=== PATIENT | male | born 1995 | race Hispanic/Latino ===

== ENCOUNTER 2018-12-24 19:59 | Emergency (ER) | payer OTHER, SELFPAY ==
--- NOTE | 2018-12-24 21:03 | RAD ---
XR Chest Pa Lat STANDARD History: [Chest pain] Comparison: None. Findings: The lungs are clear. No pneumothorax or effusion. Cardiac silhouette and mediastinal contou rs are within normal limits. Impression: No acute intrathoracic abnormality.
--- NOTE | 2018-12-27 18:00 | EKG ---
Test Reason : Blood Pressure : / mmHG Vent. Rate : 060 BPM Atrial Rate : 060 BPM P-R Int : 146 ms QRS Dur : 080 ms QT Int : 368 ms P-R-T Axes : 065 069 053 degrees QTc Int : 368 ms Normal sinus rhythm Normal ECG Confirmed by JESSICA THOMASON DO ([id number]), editor managing director CRISTINA JOHNSON ([id number]) on 12/27/2018 6:00:10 PM Referred By: Confirmed By:JESSICA THOMASON DO
== END 2018-12-24 21:25 | disposition home or self-care (01) ==
LOC: ERS 19:59
DX: F41.9 Anxiety disorder, unspecified (principal); R07.89 Other chest pain; F17.210 Nicotine dependence, cigarettes, uncomplicated
CPT/HCPCS: 71046; 93005

== ENCOUNTER 2020-01-14 12:33 | Emergency (ER) | payer SELFPAY ==
[2020-01-14] MEDS ORDERED: Ibuprofen 200 MG TAB ONE (13:02)
[2020-01-14] MEDS ORDERED: Acetaminophen 500 MG TAB ONE (13:02)
--- NOTE | 2020-01-14 15:22 | RAD ---
PORTABLE CHEST ONE VIEW: 01/14/20 at 1:09 p.m. HISTORY: Chest pain. COMPARISON: 12/24/18 The heart size is normal. The lungs are expanded and clear. The bony thorax is normal. IMPRESSION: Normal exam. POS: [facility]
--- NOTE | 2020-01-15 14:28 | EKG ---
Test Reason : Blood Pressure : / mmHG Vent. Rate : 086 BPM Atrial Rate : 086 BPM P-R Int : 146 ms QRS Dur : 078 ms QT Int : 334 ms P-R-T Axes : 060 062 026 degrees QTc Int : 399 ms Normal sinus rhythm Normal ECG Confirmed by HEATH KEANE ([id number]), image editor KRISTOFER DOVE ([id number] on 01/15/2020 2:27:47 PM Referred By: Confirmed By:HEATH Monson
== END 2020-01-14 13:25 | disposition home or self-care (01) ==
LOC: ERS 12:33
DX: R07.9 Chest pain, unspecified (principal); F41.9 Anxiety disorder, unspecified; F17.210 Nicotine dependence, cigarettes, uncomplicated
CPT/HCPCS: 71045; 93005